=== PATIENT | female | born 1950 | race Caucasian/White ===

== ENCOUNTER → 2016-08-26 | Outpatient (CLI) | payer MEDICARE ==
[~2016-08-26] MED LIST: ACCOLATE20 MG PO; CEFTIN500 MG PO; CLONAZEPAM1 M1 PO; COMBIVENT0.074 GM/I INH; DILANTIN 100 M100 MG PO; DILTIAZEM 24HR240 M1 PO; KLOR-CON M2020 MEQ PO; LASIX 40 MG TAB40 MG PO; LOPRESSOR100 MG PO; METOPROLOL SUC100 MG PO; NEURONTIN 300300 MG PO; PREDNISONE 10 M10 MG PO; PROTONIX40 MG PO; ROBAXIN 750 MG750 MG PO; SPIRIVA18 MCG INH; SYMBICORT 16010.2 GM INH; THEO-DUR 300 M300 MG PO; TRAMADOL HCL50 MG PO; VITAMIN B-1000 MCG/M IM; VITAMIN D50000 UNIT PO
== END ==
LOC: KOH-I 10:38
DX: M54.2 Cervicalgia (principal); M54.9 Dorsalgia, unspecified
CPT/HCPCS: 72052; 72070

== ENCOUNTER → 2016-09-01 | Outpatient (CLI) | payer MEDICARE | LOC: RT 13:16 | DX: J44.9 Chronic obstructive pulmonary disease, unspecified (principal); J96.10 Chronic respiratory failure, unspecified whether with hypoxia or hypercapnia | CPT/HCPCS: 36600; 82803 ==

== ENCOUNTER → 2016-09-09 | Outpatient (CLI) | payer MEDICARE | LOC: KOH-I 14:44 | DX: M48.50XA Collapsed vertebra, not elsewhere classified, site unspecified, initial encounter for fracture (principal); M48.56XA Collapsed vertebra, not elsewhere classified, lumbar region, initial encounter for fracture; M51.36 Other intervertebral disc degeneration, lumbar region | CPT/HCPCS: 72148 ==

== ENCOUNTER 2016-10-09 16:07 | Emergency (ER) | payer MEDICARE ==
[2016-10-09 18:34] LABS: HEMOGLOBIN 13.2 gm/dl (12.3-15.3); RED BLOOD COUNT 4.66 M/UL (4.00-5.10); WHITE BLOOD COUNT 13.6 K/UL (4.5-11.0)
[2016-10-09 18:52] LABS: BUN/CREATININE RATIO 10 (0-10)
== END 2016-10-10 02:15 | disposition home or self-care (01) ==
LOC: ER1 16:07
PROVIDERS: Family Medicine
DX: K59.00 Constipation, unspecified (principal); R11.0 Nausea; I10 Essential (primary) hypertension; J44.9 Chronic obstructive pulmonary disease, unspecified; G40.909 Epilepsy, unspecified, not intractable, without status epilepticus; Z90.49 Acquired absence of other specified parts of digestive tract; Z88.8 Allergy status to other drugs, medicaments and biological substances
CPT/HCPCS: 36415; 80053; 81001; 83690; 85025; 87086; 96374; 99284; J2405; J7030; J7050; Q9962

== ENCOUNTER 2021-12-04 11:35 | Emergency (ER) | payer MEDICARE ==
[~2021-12-04 11:35] MED LIST changes: +AUGMENTIN 500-1 EACH PO; +CARDIZEM120 MG PO; +CHRONULAC20 GM/30 M PO; -COMBIVENT0.074 GM/I INH; -DILTIAZEM 24HR240 M1 PO; +DOCUSATE SODIU250 MG PO; +ELLIPTA INH; +ESTER-C 500 MG1 EACH PO; +HYDRALAZINE HCL25 MG PO; +IPRAT-ALBUT 0.5-3 ML INH; +LINZESS290 MCG PO; +METHYLPREDNISOLO4 M1 PO; +MOVANTIK25 MG PO; +NORFLEX 100 MG100 MG PO; +NYSTATIN100000 UNI PO; +PLETAL 100 MG100 MG PO; +PREDNISONE20 MG PO; +SKELAXIN TAB 8800 MG PO; +SYMBICORT 160-1 INHA INH; +TYLENOL W/CODEIN1 E1 PO; +VIBRAMYCIN100 MG PO; +VITAMIN D250000 UNIT PO; -VITAMIN D50000 UNIT PO
[2021-12-04] MEDS ORDERED: ZITHROMAX250 MG PO (15:03)
[2021-12-04] MEDS ORDERED: PREDNISONE 50 M50 MG PO (15:03)
[2021-12-04] MEDS ORDERED: PAXLOVID CO-PA1 EACH PO (15:04)
== END 2021-12-04 15:12 | disposition home or self-care (01) ==
LOC: ER1 11:35
DX: U07.1 COVID-19 (principal)
CPT/HCPCS: 71045; 93005; 99283

== ENCOUNTER 2021-12-11 03:05 | Emergency (ER) | payer MEDICARE ==
[~2021-12-11 03:05] MED LIST changes: +PAXLOVID CO-PA1 EACH PO; +PREDNISONE 50 M50 MG PO; +ZITHROMAX250 MG PO
[2021-12-11 03:19] LABS: HEMOGLOBIN 11.7 gm/dl (12.3-15.3); RED BLOOD COUNT 4.56 M/UL (4.00-5.10); WHITE BLOOD COUNT 8.6 K/UL (4.5-11.0)
[2021-12-11 03:44] LABS: BUN/CREATININE RATIO 13 (0-10)
== END 2021-12-11 07:05 | disposition home or self-care (01) ==
LOC: ER1 03:05
DX: U07.1 COVID-19 (principal); J44.1 Chronic obstructive pulmonary disease with (acute) exacerbation; Z88.8 Allergy status to other drugs, medicaments and biological substances
CPT/HCPCS: 36600; 71045; 80053; 82550; 82553; 82803; 83605; 83735; 84100; 84484; 85025; 86140; 87040; 93005; 96374; 99284; J1100